=== PATIENT | female | born 1995 | race Caucasian/White ===

== ENCOUNTER 2024-03-06 05:22 | Outpatient (CLI) | payer MEDICAID, SELFPAY ==
[2024-03-06 14:56] LABS: HCT 44.6 % (36.0-46.0); HGB 15.1 g/dL (11.2-15.7); MCH 30.9 pg (27.0-33.0); MCHC 33.9 % (32.0-36.0); MCV 91 fL (80-95); MPV 9.3 fL (8.0-11.0); Platelet Count 328 10^3/uL (130-400); RBC 4.88 10^6/uL (3.93-5.22); RDW 14.1 % (11.7-14.6); RDW-SD 47.7 fL; WBC 10.14 10^3/uL (4.4-10.8)
[2024-03-06 15:09] LABS: Hemoglobin A1C 5.6 % (<5.7)
[2024-03-06 16:28] LABS: ALT 34 U/L (14-59); AST 14 U/L (15-37); Albumin 3.6 g/dL (3.4-5.0); Alkaline Phosphatase 63 U/L (46-116); BUN 10 mg/dL (7-18); Bilirubin, Total 0.3 mg/dL (0.2-1.0); CREATININE 0.8 mg/dL (0.55-1.02); Calcium 8.8 mg/dL (8.5-10.1); Chloride 107 mmol/L (98-107); Estimated GFR 104.15 (mL/min/1.73m2); Glucose 106 mg/dL (74-106); Potassium 3.9 mmol/L (3.5-5.1); Sodium 140 mmol/L (136-145); TSH (W/Ref FT4) 1.81 uIU/mL (0.36-3.74); Total Protein 7.1 g/dL (6.4-8.2)
== END 2024-03-06 05:23 | disposition home or self-care (01) ==
LOC: LBO 05:22
PROVIDERS: PCP Nurse Practitioner Family; Visit Provider Nurse Practitioner Family
DX: K21.9 Gastro-esophageal reflux disease without esophagitis; R51.9 Headache, unspecified; G89.29 Other chronic pain; F51.04 Psychophysiologic insomnia
CPT/HCPCS: 36415; 80053; 85027; 83036; 84443

== ENCOUNTER 2024-05-25 01:50 | Outpatient (CLI) | payer MEDICAID, SELFPAY ==
--- OUTSIDE RECORDS SUMMARY | 2024-05-25 01:56 | XMS_ITS | Encounter Summary ---
Author Organization [facility] [place] [address] Care Team Providers Care Warehouse Order Selector Name Role Phone Irma, Juliannerenato Gregory APRN Primary Care Provider [phone] Reason for Visit * Reason Comments Follow-up Encounter Details Date Type Department Care Team (Late st Contact Info) Description 04/03/2024 3:15 PM EDT Office Visit Dermatology at [address] [address] Gema Castro MD [facility] [address] [place] [address] Hidradenitis suppurativa Social History Tobacco Use Types Packs/Day Years Used Date Smoking Tobacco: Never Sex and Gender Information Value Date Recorded Sex Assigned at Not on file Gender Identity Not on file Sexual Orientation Not on file documented as of this encounter Progress Notes * Gema Castro MD - 04/03/2024 3:15 PM EDT Images from the original note were not included. DEPARTMENT OF DERMATOLOGY Medical Dermatology Clinic Provider: Gema Castro MD Patient's preferred name Maryam Preferred contact method for results []Phone [x]myD-H []Letter Detailed phone message OK? Yes Are there any other people with whom we may discuss your care? Kenzie (mother) Past Medical History Date, location, treatment Melanoma No Dysplastic nevi No SCC No BCC No AKs No UV Exposure & Protection Other relevant past medical history Family History Details Melanoma No NMSC No Other relevant family history Social History Occupation: Unemployed/disabled Pre-Procedure Questions Details Allergy to lidocaine, epinephrine, Dermabond, chlorhexidine, or adhesives No Bleeding disorder or blood thinners No Implanted devices (Pacemaker, defibrillator, deep brain stimulator, cochlear implant) No History of Present Illness: Maryam Green is a 28 y.o. Patient returns to clinic today forhidradenitis suppurativa follow up She feels she is doing well and no real active lesions today Last visit at Dermatology: 11/14/2023 Last visit with this provider: 11/14/2023 Medications: Reviewed in eD-H Allergies: Reviewed in eD-H Skin Examination: Focused skin examination of the arms and legs was normal with the exception of the findings below. Assessment/Plan #. Hidradenitis Suppurativa (Acne Inversa), Thibodeaux stage 1, vs Folliculitis - just a few follicularly based papules and macules of post inflammatory hyperpigmentation and she reports one area under her breat (previous exam ) - Explained ddx. HS is a painful skin condition characterized by the combination of both immune dysregulation and occlusion of the folliculopilosebaceous unit. It primarily affects the intertriginousareas of the axillary, groin, perianal, and inframammary region - Previously discussed treatment with topical antibiotics, BPO wash, ILK for stubborn/inflamed cysts - Discussed possibility of ILK vs drainage of the scarred cyst in right inguinal fold if it becomesmore bothersome. - Discontinue benzoyl peroxide wash (limited access to water) - Continue OTC Hibiclens wash 1x per week, avoiding the head - Continue Rx clindamycin 1% lotion: Apply topically to affected areas twice daily as needed. - Will order Rx doxycycline 100 mg: Take 1 capsule twice daily (morning and evening) for 90 days Ifflaring (s/p one course of this). Discussed could consider a low dose doxycyline if needed for longer duration Counseled patient to take with bland food (crackers, bread - noted interaction with calcium, iron, vitamin C) with a full glass of water, and to avoid laying down for 30 minutes. - Discussed side effects (GI upset, esophagitis, photosensitivity, possibility of vaginal yeast infection) and contraindication. Other: N/A RTC: 6 months for HS follow up []Note routed to board of education secretary []Recall placed in scheduling system [x]Appointment scheduled at checkout Scribe attestation: Yudi Maxwell LPN has performed the documentation for this encounter in the presence of and acting as a scribe for Gema Castro MD. I performed the above scribed service and agree with the accuracy of the documentation in this encounter. Reviewed and signed by: Gema Castro MD Dermatology [facility] documented in this encounter Plan of Treatment Upcoming Encounters Date Type Department Care Team (Late st Contact Info) Description 12/12/2024 3:45 PM EDT Office Visit Dermatology at [facility] [address] [place] [address] Gema Castro MD [facility] [address] [place] [address] documented as of this encounter Visit Diagnoses Diagnosis Hidradenitis suppurativa Hidradenitis documented in this encounter Care Teams Warehouse Order Selector Relationship Specialty Start Date End Date Irma, Julianne Gregory APRN [address] [place] [address] PCP - General Internal Medicine 11/14/23 documented as of this encounter
--- OUTSIDE RECORDS SUMMARY | 2024-05-25 01:56 | XMS_ITS | Encounter Summary ---
[place] [address] Care Team Providers Care Pulmonologist/Intensivist Name Role Phone Julianne Solis APRN Primary Care Provider [phone] Reason for Referral * Consultation (Routine) - Closed Specialty Diagnoses / Procedures Referred By Juan Manuel klein Referred To Contact Gastroenterology Diagnoses Dysphagia, unspecified type Gastroesophageal reflux disease without esophagitis Constipation, unspecified constipation type Diarrhea, unspecified type dysphagia/gerd/constipati on/diarrhea Julianne Solis APRN [address] [place] [address] [facility] [place] [address] Referral ID Status Reason Start Date Expiration Date V isits Requested Visits Authorized [id number] Closed Consult, Test & Treat PCP Updated and/or Approved 05/03/2024 05/03/2025 6 6 Encounter Details Date Type Department Care Team (Late st Contact Info) Description 05/07/2024 Transcribe Orders eDH Incoming Referrals [phone] Julianne Solis APRN [address] [place], [place] [id number] Dysphagia, unspecified type; Gastroesophageal reflux disease without esophagitis; Constipation, unspecified constipation type; Diarrhea, unspecified type Social History Tobacco Use Types Packs/Day Years Used Date Smoking Tobacco: Never Sex and Gender Information Value Date Recorded Sex Assigned at Not on file Gender Identity Not on file Sexual Orientation Not on file documented as of this encounter Plan of Treatment Upcoming Encounters Date Type Department Care Team (Late st Contact Info) Description 12/12/2024 3:45 PM EDT Office Visit Dermatology at [facility] [address] [place] [address] Gema Castro MD [facility] [address] [address] Scheduled Referrals Name Type Priority Associated Diagnoses Order Schedule Referral to Gastroenterology Outpatient Referral Routine Dysphagia, unspecified type Gastroesophageal reflux disease without esophagitis Constipation, unspecified constipation type Diarrhea, unspecified type Ordered: 05/07/2024 documented as of this encounter Visit Diagnoses Diagnosis Dysphagia, unspecified type Gastroesophageal reflux disease without esophagitis Esophageal reflux Constipation, unspecified constipation type Diarrhea, unspecified type documented in this encounter Care Teams Pulmonologist/Intensivist Relationship Specialty Start Date End Date Irma, Julianne Gregory APRN [address] [place] [address] PCP - General Internal Medicine 11/14/23 documented as of this encounter
--- OUTSIDE RECORDS SUMMARY | 2024-05-25 01:56 | XMS_ITS | Encounter Summary ---
Author Organization [facility] Address [facility] [place] [address] Care Team Providers Care Bench Technician Name Role Phone Rigo Fernandez MD Primary Care Provider [phone] Reason for Referral * Consultation (Priority 3) - Closed Specialty Diagnoses / Procedures Referred By Juan Manuel klein Referred To Contact Dermatology Diagnoses Hidradenitis suppurativa Radha Garzon CNM [address] [place] [id number] Darling Jordan MD [facility] [address] [place] [address] Referral ID Status Reason Start Date Expiration Date V isits Requested Visits Authorized [id number] Closed Consult, Test & Treat PCP Updated and/or Approved 05/11/2023 05/10/2024 6 6 Encounter Details Date Type Department Care Team (Latest Contact Info) Description 05/11/2023 Transcribe Orders eDH Incoming Referrals [phone] Radha Garzon CNM Hidradenitis suppurativa Social History Tobacco Use Types [...] 3:45 PM EDT Office Visit Dermatology at [facility] [address] [place] [address] Gema Castro MD [facility] [address] [place] [address] Scheduled Referrals Name Type Priority Associated Diagnoses Orde r Schedule Referral to Dermatology Outpatient Referral Routine Hidradenitis suppurativa Ordered: 05/11/2023 documented as of this encounter Visit Diagnoses Diagnosis Hidradenitis suppurativa Hidradenitis documented in this encounter Care Teams Bench Technician Relationship Specialty Start Date End Date Rigo Fernandez MD [address] [place] [address] [place] [address] PCP - General 01/15/19 11/13/23 documented as of this encounter
--- OUTSIDE RECORDS SUMMARY | 2024-05-25 01:56 | XMS_ITS | Encounter Summary ---
[place] [address] Care Team Providers Care Hedis Review Nurse Name Role Phone Perry Hebert MD Primary Care Provider [phone] Reason for Referral * Consultation (Routine) - Specialty Diagnoses / Procedures Referred By Juan Manuel klein Referred To Contact Sleep Center Diagnoses Primary insomnia Ed Wolfe MD [facility] [place] [address] [facility] [address] [place] [address] Referral ID Status Reason Start Date Expiration Date V isits Requested Visits Authorized [id number] Consult Only 06/09/2015 06/08/2016 3 3 Reason for Visit * Reason Comments Referral Encounter Details Date Type Department Care Team (Late st Contact Info) Description 06/09/2015 2:15 PM EDT Office [place] [address] Ed Wolfe MD [facility] [place] [address] Chronic arthralgias of knees and hips, unspecified laterality; Gastroesophageal reflux disease, esophagitis presence not specified; Primary insomnia Discharge Disposition: Home Social History Tobacco Use Types Packs/Day Years Used Date Smoking Tobacco: Never Sex and Gender Information Value Date Recorded Sex Assigned at Not on file Gender Identity Not on file Sexual Orientation Not on file documented as of this encounter Last Filed Vital Signs Vital Sign Reading Time Taken Comments Blood Pressure 131/64 06/09/2015 2:18 PM EDT Pulse 87 06/09/2015 2:18 PM EDT Temperature 36.5 ??C (97.7 ??F) 06/09/2015 2:18 PM ED T Respiratory Rate - - Oxygen Saturation 100% 06/09/2015 2:18 PM EDT Inhaled Oxygen Concentration - - Weight 76.2 kg (168 lb) 06/09/2015 2:18 PM EDT Height 160 cm (5' 3) 06/09/2015 2:18 PM EDT Body Mass Index 29.76 06/09/2015 2:18 PM EDT Body Mass Index Percentile 94.64% 06/09/2015 2:1 8 PM EDT Growth Chart: [facility] (Girls, 2- 20 Years) documented in this encounter Progress Notes * Corby Mejia MD - 06/10/2015 12:28 PM EDT I have seen the patient and reviewed the resident's above history and I agree with the details as written. The assessment and plan were formulated in discussion with me and I agree with them as documented. Pertinent History: Diffuse body pain Pertinent Exam: Hypermobile no synovitis no tender points Major issues addressed: Is this fibro Plan: Check serology needs sleep study trial of amitryptiline * Ed Wolfe MD - 06/09/2015 2:45 PM EDT Rheumatology Outpatient Consultation Note Reason for Consult: The patient is seen at the request of Dr. PERRY HEBERT MD (General) for evaluation and treatment of History of Present Illness: Maryam Green is a 19 y.o. female who presents today for evaluation of diffuse body pains that have bothered her for years. She describes pain which is worst in the shoulders, wrists and ankles, but also affects every otherjoint. She does not have diurnal variation, no aggravating or alleviating factors. She has tried tylenol, naproxen and ibuprofen with minimal relief. She has no swelling in any of her joints and no morning stiffness. She also complains of severe reflux, associated with burning pain, metallic taste which is worse with lying down, not helped by ranitidine. She does have a lot of trouble getting to sleep and staying asleep is hard most nights. On average she gets between 10-14 hrs sleep a night, which is always unrefreshing. No depression currently. Shehas been told that she snores, and when she wakes up her sheets are clumped up. She has fatigue from the time she wakes up to the time she sleeps. She is not exercising regularly, and when she was in school her only regular exercise was walking to class. She does think she is fairly flexible and her brother is also quite hypermobile. ROS: General (-)fevers, (-)chills, (-)night sweats, (-)wt loss/gain. HEENT (-)head trauma, (-)vision change, (-)red/itchy eyes, (-)tinnitus, (- )epistaxis, (-)bleeding gums, (-)sore throat, (-)oral ulcers, (+)dry eyes-but not requiring any intervention, worse with looking at screen, (+)dry mouth- does not require liquids when eating, but does drink a lot of water CVS (-)chest pain, (-)palpitations, (-)pedal edema, (-)PND, (-)orthopnea. Pulm (-)shortness of breath, (-)PEPE, (-)wheezes, (-)cough, (+)pleuritic pain GI (+)abdominal pain, (+)N/V, (+)diarrhea/constipation, (-)hematochezia/melena, (-)GERD, (-)dysphagia, (-)change in appetite (-)hematuria, (-)dysuria, (-)frequency, (-)nocturia, (-)genital ulcers MS (-)muscle weakness, (-)joint pain, (-)hx of arthritis Endo (-)thyroid disorders, (-)diabetes, (-)temperature intolerance. Neuro (-)focal weakness, (-)paresthesias, (-)gait instability, (-)vertigo Skin (-)Raynaud's, (-)rash, (-)ulcers, (-)hair loss, (-)photo sensitivity Psych (-)mood disorder. History Social History ??? Marital Status: Single Spouse Name: N/A Number of Children: N/A ??? Years of Education: N/A Social History Main Topics ??? Smoking status: Never Smoker ??? Smokeless tobacco: None ??? Alcohol Use: None ??? Drug Use: None ??? Sexual Activity: None Other Topics Concern ??? None Social History Narrative ??? None Current Outpatient Prescriptions Medication Sig Dispense Refill ??? ranitidine (ZANTAC) 150 mg Tablet Take 150 mg by mouth as needed for Heartburn. ??? naproxen-diphenhydramine (ALEVE PM) 220-25 mg Tablet Take by mouth as needed. ??? omeprazole (PRILOSEC) 40 mg Capsule, Delayed Release(E.C.) Take 1 capsule by mouth daily. 30 capsule 11 No current facility-administered medications for this visit. 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 Cardiovascular: RRR, (-)murmurs, rubs, or gallops. Lungs: Clear to auscultation bilaterally. No w/r/r. Back: Nontender over the spine and costovertebral angles bilaterally. No tender points, felt betterduring palpation of tender areas Neuro: Alert and oriented x3. Extremities: Shoulders: FROM, non-tender to palpation Elbows:FROM, (-)pain, (-)nodules Wrists: FROM, no swelling, non-tender Hands: No synovitis, no MCP compression tenderness, full claw and fist Hips: FROM Knees: (-)effusions, non-tender ROM Ankles: FROM, non-tender, no swelling Feet: no MTP compression tenderness Vascular: Pulses are equal in all extremities. Beighton's Criteria for Joint Hypermobility Joint/Finding Negative Unilateral Bilateral Passive dorsiflexion of the 5th finger >90?? 0 Passive flexion of thumbs to the forearm 0 Hyperextension of the elbows beyond 10?? 2 Hyperextension of the knees beyond 10?? 2 Forward flexion of the trunk with knees fully extended and palms resting on the floor 0 A total score of >=5 defines hypermobility; her score is 4 Laboratory Data: GI, RF, CCP negative Sed rate 11, CRP 0.19 CBC, BMP within normal limits Studies: None available Impression: Maryam Green is a 19 y.o. female who presents today with diffuse pain which is ill defined, but certainly does not seem inflammatory. She does seem to have some element of hypermobility, and is likely hypersensitized to pain because of her sleep deficit. Her symptoms of insomnia, certainly raise the possibility of CHEMO or restless leg and a sleep study may be helpful. Amitriptyline may also be useful for a trial to see if it improves her sleep and her pain. For her reflux symptoms it certainly seems reasonable to try a PPI especially as it may be playing a part in her difficulties sleeping. If no benefit is seen at follow up, then she should probably be referred to GI for additional work up. Given her non specific symptoms and history of low titer positive GI we will repeat her serology and send for PRACHI as she does have some sicca complaints. CC: PERRY HEBERT MD (General) Case seen and discussed with Dr Roberto WOLFE MD 06/10/2015 documented in this encounter Plan of Treatment Upcoming Encounters Date Type Department Care Team (Late st Contact Info) Description 12/12/2024 3:45 PM EDT Office Visit Dermatology at [facility] [address] [place] [address] Gema Castro MD [facility] [address] [facility] [address] Scheduled Referrals Name Type Priority Associated Diagnoses Orde r Schedule Referral to Sleep Disorders Center Outpatient Referral Routine Primary insomnia Ordered: 06/09/2015 documented as of this encounter Procedures Procedure Name Priority Date/Time Associated Diagnosis Comments MISCELLANEOUS LAB REQUEST Routine 06/09/2015 4:23 PM EDT Chronic arthralgias of knees and hips, unspecified laterality RNA POLYMERASE III AB,IGG Routine 06/09/2015 4:23 PM EDT EXTRACTABLE NUCLEAR ANTIGEN (PRACHI) AB Routine 06/09/2015 4:23 PM EDT Chronic arthralgias of knees and hips, unspecified laterality GI ANTIBODY SCREEN Routine 06/09/2015 4 :23 PM EDT Chronic arthralgias of knees and hips, unspecified laterality documented in this encounter Results * RNA Polymerase III Ab,IgG (06/09/2015 4:23 PM EDT) Pathologist [facility] RNA Polymerase III Ab, IgG (JANUARY) <10.0 <20.0 (Negative) [facility] Comment: Test Performed by: [place] [address] Bisque Tile Burner: Alec Muñoz II, M.D., Ph.D. Blood specimen (specimen) Venous Draw / Unknown 06/09/2015 4:23 PM EDT 06/10/2015 8:30 AM EDT Narrative Resulting Agency Comment Spec In Lab Ed Wolfe MD LAB SEND OUT ORDERAB LES [facility] * Miscellaneous Lab request (06/09/2015 4:23 PM EDT) Label Request received in lab. [facility] Blood specimen (specimen) 06/09/2015 4:23 PM EDT 06/09/2015 4:33 PM EDT Narrative Resulting Agency Comment Spec In Lab Corby Mejia MD LAB SEND OUT ORDERAB LES [facility] * Extractable Nuclear Antigen (PRACHI) Ab (06/09/2015 4:23 PM EDT) PRACHI Ab Test ?Result ?Flag ??Unit ??RefValue Ab to Extractable Nuclear Ag Eval,S ??SS-A/Ro Ab, IgG, S ?<0.2 ?U -- REFERENCE VALUE -- <1.0 (Negative) ??SS-B/La Ab, IgG, S ?<0.2 ?U -- REFERENCE VALUE -- <1.0 (Negative) ??Sm Ab, IgG, S ? <0.2 ?U -- REFERENCE VALUE -- <1.0 (Negative) ??PET CARE TECHNICIAN Ab, IgG, S ?0.5 ? U -- REFERENCE VALUE -- <1.0 (Negative) ??Scl 70 Ab, IgG, S ? <0.2 ?U -- REFERENCE VALUE -- <1.0 (Negative) ??Bianka 1 Ab, IgG, S ? <0.2 ?U -- REFERENCE VALUE -- <1.0 (Negative) Test Performed by: [place] [address] Bisque Tile Burner: Agustina Clay, Ph.D. [facility] Blood specimen (specimen) 06/09/2015 4:23 PM EDT 06/10/2015 8:27 AM EDT Narrative Resulting Agency Comment Spec In Lab Corby Mejia MD LAB SEND OUT ORDERAB LES [facility] * GI (06/09/2015 4:23 PM EDT) GI Neg Neg [facility] REDMONDI[facility] Blood specimen (specimen) 06/09/2015 4:23 PM EDT 06/10/2015 8:12 AM EDT Narrative Resulting Agency Comment Spec In Lab Corby Mejia MD LAB SEND OUT ORDERAB LES [facility] documented in this encounter Visit Diagnoses Diagnosis Chronic arthralgias of knees and hips, unspecified laterality Gastroesophageal reflux disease, esophagitis presence not specified Primary insomnia Persistent disorder of initiating or maintaining sleep documented in this encounter Care Teams Hedis Review Nurse Relationship Specialty Start Date End Date Perry Hebert MD PCP - General 08/18/10 01/14/19 documented as of this encounter
--- OUTSIDE RECORDS SUMMARY | 2024-05-25 01:56 | XMS_ITS | Encounter Summary ---
[place] [address] Care Team Providers Care Manager Qa Name Role Phone Julianne Solis APRN Primary Care Provider [phone] Encounter Details Date Type Department Care Team (Latest Contact Info) Description 11/14/2023 Travel Social History Tobacco Use Types Packs/Day Years Used Date Smoking Tobacco: Never Sex and Gender Information Value Date Recorded Sex Assigned at Not on file Gender Identity Not on file Sexual Orientation Not on file documented as of this encounter Plan of Treatment Upcoming Encounters Date Type Department Care Team (Late st Contact Info) Description 12/12/2024 3:45 PM EDT Office Visit Dermatology at [facility] [address] [place] [address] Gema Castro MD [facility] [address] [place] [address] documented as of this encounter Visit Diagnoses Not on filedocumented in this encounter Care Teams Manager Qa Relationship Specialty Start Date End Date Julianne Solis APRN [address] [place] [address] PCP - General Internal Medicine 11/14/23 documented as of this encounter
--- OUTSIDE RECORDS SUMMARY | 2024-05-25 01:56 | XMS_ITS | Encounter Summary ---
[place] [address] Care Team Providers Care Piggyback Clerk Name Role Phone Julianne Solis APRN Primary Care Provider [phone]- [phone] Encounter Details Date Type Department Care Team (Latest Contact Info) Description 04/03/2024 Travel Social History Tobacco Use Types Packs/Day [...] 3:45 PM EDT Office Visit Dermatology at [facility] [address] [place] [address] Gema Castro MD [facility] [address] [place] [address] documented as of this encounter Visit Diagnoses Not on filedocumented in this encounter Care Teams Piggyback Clerk Relationship Specialty Start Date End Date Julianne Solis APRN [address] [place] [address] PCP - General Internal Medicine 11/14/23 documented as of this encounter
--- OUTSIDE RECORDS SUMMARY | 2024-05-25 01:56 | XMS_ITS | Encounter Summary ---
Author Organization [facility] [place] [address] Care Team Providers Care Dedicated Intermodal Truck Driver Name Role Phone Rigo Fernandez MD Primary Care Provider [phone] Encounter Details Date Type Department Care Team (Latest Contact Info) Description 09/06/2023 Travel Social History Tobacco Use Types Packs/Day [...] 3:45 PM EDT Office Visit Dermatology at [address] [address] Gema Castro MD [facility] [address] [place] [address] documented as of this encounter Visit Diagnoses Not on filedocumented in this encounter Care Teams Dedicated Intermodal Truck Driver Relationship Specialty Start Date End Date Rigo Fernandez MD [address] [place] [address] PCP - General 01/15/19 11/13/23 documented as of this encounter
--- OUTSIDE RECORDS SUMMARY | 2024-05-25 01:56 | XMS_ITS | Encounter Summary ---
Author Organization [facility] [place] [address] Care Team Providers Care Vehicle Sales Professional Name Role Phone Irma, Julianne Gregory APRN Primary Care Provider [phone] Encounter Details Date Type Department Care Team (Late st Contact Info) Description 11/14/2023 2:20 PM EST Office Visit Dermatology at [address] [address] Gema Castro MD [facility] [place] [address] Hidradenitis suppurativa Social History Tobacco Use Types Packs/Day Years Used Date Smoking Tobacco: Never Sex and Gender Information Value Date Recorded Sex Assigned at Not on file Gender Identity Not on file Sexual Orientation Not on file documented as of this encounter Progress Notes * Gema Castro MD - 11/14/2023 2:20 PM EST Images from the original note were not [...] 28 y.o. Patient returns to clinic today forHS follow up Patient states she has limited access to hot water/showering so she has not been able to use benzoyl peroxide wash or clindamycin very often. Benxoyl peroxide and clindamycin makes spots sometimes more tender/sensitive. Last visit at Dermatology: 09/06/2023 Last visit with this provider: Never Medications: Reviewed in eD-H Allergies: Reviewed in eD-H Skin Examination: Focused skin examination of the intermammary folds, groin was normal with the exception of the findings below. Assessment/Plan #. Hidradenitis Suppurativa (Acne Inversa), Thibodeaux stage 1, vs Folliculitis - scattered follicularly based papules and macules of post inflammatory hypopigmentation on the central chest and inframammary skin an proximal medial thighs and one probable scarred cyst on the right inguinal fold. No comedones, sinus tracks, or draining cysts/nodules - Explained ddx. HS is a painful skin condition characterized by the combination of both immune dysregulation and occlusion of the folliculopilosebaceous unit. It primarily affects the intertriginousareas of the axillary, groin, perianal, and inframammary region - Discussed treatment with topical antibiotics, BPO wash, ILK for stubborn/inflamed cysts - Discussed possibility of ILK vs drainage of the scarred cyst in right inguinal fold if it becomesmore bothersome. - Discontinue benzoyl peroxide wash (limited access to water) - Begin OTC Hibiclens wash 1x per week, avoiding the head - Start Rx clindamycin 1% lotion: Apply topically to affected areas twice daily as needed. - Begin Rx doxycycline 100 mg: Take 1 capsule twice daily (morning and evening) for 90 days. Counseled patient to take with bland food (crackers, bread - noted interaction with calcium, iron, vitaminC) with a full glass of water, and to avoid laying down for 30 minutes. - Discussed side effects (GI upset, esophagitis, photosensitivity, possibility of vaginal yeast infection) and contraindication. Other: OTC skin products discussed RTC: 3-4 month HS follow up []Note routed to clinical secretary []Recall placed in scheduling system []Appointment scheduled at checkout Scribe attestation: Shaw Gonzalez, RN has performed the documentation for this encounter in the presence of and acting as a scribe for Gema Castro MD. I performed the above scribed service and agree with the accuracy of the documentation in this encounter. Reviewed and signed by: Gema Castro MD Dermatology [facility] documented in this encounter Plan of Treatment Upcoming Encounters Date Type Department Care Team (Late st Contact Info) Description 12/12/2024 3:45 PM EDT Office Visit Dermatology at [facility] [address] [place] [address] Gema Castro MD [facility] [address] [place] [address] documented as of this encounter Visit Diagnoses Diagnosis Hidradenitis suppurativa Hidradenitis documented in this encounter Care Teams Vehicle Sales Professional Relationship Specialty Start Date End Date Irma, Julianne Gregory APRN [address] [facility] [address] [place] [address] PCP - General Internal Medicine 11/14/23 documented as of this encounter
--- OUTSIDE RECORDS SUMMARY | 2024-05-25 01:56 | XMS_ITS | Encounter Summary ---
Author Organization [facility] [place] [address] Care Team Providers Care Kitchen Steward Name Role Phone Rigo Fernandez MD Primary Care Provider [phone] Reason for Visit * Consultation (Priority 3) - Closed Specialty Diagnoses / Procedures Referred By Juan Manuel klein Referred To Contact Dermatology Diagnoses Hidradenitis suppurativa Radha Garzon, CNM [address] [place] [address] Darling Jordan MD [facility] [address] [place] [address] Referral ID Status Reason Start Date Expiration Date V isits Requested Visits Authorized [id number] Closed Consult, Test & Treat PCP Updated and/or Approved 05/11/2023 05/10/2024 6 6 Encounter Details Date Type Department Care Team (Late st Contact Info) Description 09/06/2023 2:00 PM EST Office Visit Dermatology at [facility] [address] [place] [address] Katie Palmer MD [facility] [place] [address] Hidradenitis suppurativa Social History Tobacco Use Types Packs/Day Years Used Date Smoking Tobacco: Never Sex and Gender Information Value Date Recorded Sex Assigned at Not on file Gender Identity Not on file Sexual Orientation Not on file documented as of this encounter Progress Notes * Katie Palmer MD - 09/06/2023 2:00 PM EST Images from the original note were not included. DEPARTMENT OF DERMATOLOGY Medical Dermatology Clinic Note Provider: Katie Palmer MD Patient's preferred name Maryam Preferred contact [...] of Present Illness: Maryam Green is a 27 y.o. Patient is referred to the clinic at the request of Radha Garzon for Hidradenitis Suppurativa under the breast and in the groin. Currently is not treating. Review of Systems: General: Feeling well. Skin: No other skin concerns. Medications: Reviewed in eD-H Allergies: Reviewed in eD-H Skin Examination: Focused skin examination of the axilla, inframammary, thighs and groin was normal with the exception of the findings below. Assessment/Plan Hidradenitis Suppurativa (Acne Inversa), Thibodeaux stage 1, vs Folliculitis - scattered follicularly based papules and macules of post inflammatory hypopigmentation on the central chest and inframammaryskin an proximal medial thighs and one probable [...] inguinal fold if it becomesmore bothersome. - Recommended using a benzoyl peroxide wash (such as PanOxyl wash) in the shower. - Start Rx: Benzoyl Peroxide wash- Apply topically to affected areas in the shower. Lather and leave on for 2-3 minutes, then rinse. - Start Rx clindamycin 1% solution: Apply topically to affected areas twice daily as needed. Other: N/A RTC: 3 months for HS/Folliculitis follow up, sooner as needed []Note routed to ward secretary []Recall placed in scheduling system [x]Appointment scheduled at checkout Scribe attestation: Ayanna Dubois, GEE has performed the documentation for this encounter in the presence of and acting as a scribe for Katie Palmer MD. I performed the above scribed service and agree with the accuracy of the documentation in this encounter. Reviewed and signed by: Katie Palmer MD Dermatology [facility] documented in this encounter Plan of Treatment Upcoming Encounters Date Type Department Care Team (Late st Contact Info) Description 12/12/2024 3:45 PM EDT Office Visit Dermatology at [facility] [address] [place] [address] Gema Castro MD [facility] [address] [place] [address] documented as of this encounter Visit Diagnoses Diagnosis Hidradenitis suppurativa Hidradenitis documented in this encounter Care Teams Kitchen Steward Relationship Specialty Start Date End Date Rigo Fernandez MD [address] [facility] [place] [address] PCP - General 01/15/19 11/13/23 documented as of this encounter
--- OUTSIDE RECORDS SUMMARY | 2024-05-25 01:56 | XMS_ITS | Encounter Summary ---
Author Organization [facility] [place] [address] Care Team Providers Care Sales Account Director Name Role Phone Perry Hebert MD Primary Care Provider [phone] Reason for Referral * Physical Therapy (Routine) - Closed Specialty Diagnoses / Procedures Referred By Juan Manuel klein Referred To Contact Physical Therapy Diagnoses Benign hypermobility syndrome Ed Wolfe MD [facility] [place] [address] [facility] [place] [address] Referral ID Status Reason Start Date Expiration Date V isits Requested Visits Authorized [id number] Closed Evaluate and Treat 10/20/2015 10/19/2016 12 12 Encounter Details Date Type Department Care Team (Late st Contact Info) Description 10/20/2015 9:30 AM EST Office [place] [address] Ed Wolfe MD [facility] [place] [address] Benign hypermobility syndrome Social History Tobacco Use Types Packs/Day Years Used Date Smoking Tobacco: Never Sex and Gender Information Value Date Recorded Sex Assigned at Not on file Gender Identity Not on file Sexual Orientation Not on file documented as of this encounter Last Filed Vital Signs Vital Sign Reading Time Taken Comments Blood Pressure 124/61 10/20/2015 9:46 AM EST Pulse 66 10/20/2015 9:46 AM EST Temperature 36.6 ??C (97.9 ??F) 10/20/2015 9:46 AM ES T Respiratory Rate - - Oxygen Saturation 100% 10/20/2015 9:46 AM EST Inhaled Oxygen Concentration - - Weight 85.7 kg (189 lb) 10/20/2015 9:46 AM EST Height 161.3 cm (5' 3.5) 10/20/2015 9:46 AM EST Body Mass Index 32.95 10/20/2015 9:46 AM EST Body Mass Index Percentile 96.42% 10/20/2015 9:4 6 AM EST Growth Chart: [facility] (Girls, 2- 20 Years) documented in this encounter Progress Notes * Perry Barrera II, DO - 10/21/2015 3:34 PM EST I have seen the patient and reviewed Dr. Wolfe's above history and I agree with the details as written. The assessment and plan were formulated in discussion with me and I agree with them as documented. Briefly, Ms. Green is an 20 y/o F with fibromyalgia and hypermobility without evidence of a Rheumatologic disease. She will plan to f/u with Dr. Wolfe PRN. Perry Barrera DO, MPH Rheumatology Staff * Ed Wolfe MD - 10/20/2015 9:51 AM EST Rheumatology Outpatient Consultation Note Rheum history #benign hypermobility syndrome #fibromyalgia Interval: Maryam Green is a 20 y.o. Female who is here for routine follow up of benign hypermobiltiy and fibromyalgia. At last visit we confirmed negative serologies checked because of some history of questionable sicca symptoms, and started interventions to improve functional pain. She did not find elavil helpful as it just caused her to sleep more. She has focused on relaxation techniques before sleep which have helped. She is still sleeping 10-14 hours. Wakes up with siblings, has no plans for her morning, feels tired so sleeps a further 4-5 hours. 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 She has not tried physical therapy but is interested in it. Omeprazole helped with reflux symptoms, which kept her up previously. Labs reviewed including negative GI, PRACHI and RF. She has had prior issues with depression in the past, but is doing well now. Has a good support system in place. ROS: General (-)fevers, (-)chills, (-)night sweats, (-)wt [...] Topics Concern ??? None Social History Narrative Current Outpatient Prescriptions Medication Sig Dispense Refill ??? naproxen-diphenhydramine (ALEVE PM) 220-25 mg Tablet [...] PRN alleve, ibuprofen, tylenol Physical Examination: BP 124/61 mmHg Pulse 66 Temp(Src) 36.6 ??C (97.9 ??F) (Oral) Ht 161.3 cm (5' 3.5) Wt 85.73kg (189 lb) BMI 32.95 kg/m2 SpO2 100% General: AAOx3, NAD HEENT: [...] score is 4 Laboratory Data: GI, RF, CCP, PRACHI negative Sed rate 11, CRP 0.19 CBC, BMP within normal limits Studies: None available Impression: Maryam Green is a 20 y.o. female who presents today in follow up for FMS and benign hypermobility. Her sleep remains suboptimal, but she is making strides to sleep more appropriate hours, we reviewed the elements of sleep hygiene and discontinued elavil. For her pain from FMS and hypermobility she may try switching from naproxen to a different NSAID, we offered meloxicam, which she would like to try. She would also like to attend physical therapy, and she will continue to try to get regular exercise while protecting her joints. For her reflux symptoms they are improved with omeprazole which she may continue as this has also improved her sleep. She may return to clinic as needed, especially if new symptoms develop, otherwise, it seems more convenient for her to return to her primary care provider for continued management. CC: PERRY HEBERT MD Case seen and discussed with Dr Bruce WOLFE MD 10/20/2015 documented in this encounter Plan of Treatment Upcoming Encounters Date Type Department Care Team (Late st Contact Info) Description 12/12/2024 3:45 PM EDT Office Visit Dermatology at [facility] [address] [place] [address] Gema Castro MD [facility] [address] [place] [address] Scheduled Referrals Name Type Priority Associated Diagnoses Orde r Schedule Referral to Physical Therapy Outpatient Referral Routine Benign hypermobility syndrome Ordered: 10/20/2015 documented as of this encounter Visit Diagnoses Diagnosis 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
--- OUTSIDE RECORDS SUMMARY | 2024-05-25 01:56 | XMS_ITS | Clinical Summary ---
Author Organization [facility] Address [facility] [place] [address] Care Team Providers Care Green Chain Operator Name Role Phone Irma, Julianne Gregory APRN Primary Care Provider [phone] Allergies No known active allergies Medications Medication Sig Dispensed Refills Start Date End Date Status naproxen-diphenhyd ramine (ALEVE PM) 220-25 mg Tablet Take by mouth as needed. Active meloxicam (MOBIC) 15 mg Tablet Take 0.5 tablets by mouth daily. 30 tablet 12 10/20/2015 Active Additional Information Patient not taking.Reported on 09/06/2023 omeprazole (PriLOSEC) [address] capsule TAKE ONE CAPSULE BY MOUTH EVERY DAY NEEDED FOR GERD 05/11/2023 Active citalopram (CeleXA) 20 mg tablet Take 1 tablet by mouth Daily at Noon. 04/13/2023 Active citalopram (CeleXA) 10 mg tablet 05/13/2023 Active benzoyl peroxide 5 % CleanserIndication s:Hidradenitis suppurativa Apply topically to affected areas in the shower. Lather and leave on for 2-3 minutes, then rinse 226 g 12 09/06/2023 Active doxycycline (Vibramycin) 100 mg capsuleIndications :Hidradenitis suppurativa Take 1 capsule by mouth 2 times daily. 180 capsule 11/14/2023 Active clindamycin (CLEOCIN T) 1 % LotionIndications: Hidradenitis suppurativa Apply topically to affected area 1-2 times daily 60 mL 3 11/14/2023 Active Active Problems No known active problems Encounters Date Type Department Care Team Description 05/07/2024 Transcribe Orders eDH Incoming Referrals [phone] Julianne Solis APRN Dysphagia, unspecified type; Gastroesophageal reflux disease without esophagitis; Constipation, unspecified constipation type; Diarrhea, unspecified type 04/03/2024 3:15 PM EDT Office Visit Dermatology at [facility] [address] [place] [address] Gema Castro MD Hidradenitis suppurativa 04/03/2024 Travel from Last 3 Months Social History Tobacco Use Types Packs/Day Years Used Date Smoking Tobacco: Never Sex and Gender Information Value Date Recorded Sex Assigned at Not on file Gender Identity Not on file Sexual Orientation Not on file Last Filed Vital Signs Vital Sign Reading [...] Mass Index 32.95 10/20/2015 9:46 AM EST Plan of Treatment Upcoming Encounters Date Type Department Care Team (Late st Contact Info) Description 12/12/2024 3:45 PM EDT Office Visit Dermatology at [facility] [address] [place] [address] Gema Castro MD [facility] [address] [place] [address] Health Maintenance Due Date Last Done Comments HPV vaccine (1 - 3-dose series) 2012 HIV screen 2015 Hepatitis C Screening 2015 Hepatitis B vaccine (0-59 yrs) (1) 2016 Tdap adult 2016 Tetanus vaccine 2016 PAP Smear 2018 Covid-19 Vaccine ( season) 2023 Influenza (Flu) vaccine (1 o f 1 - Influenza standard series) 05/27/2024 Procedures Procedure Name Priority Date/Time Associated Diagnosis Comments LAB SCAN 03/26/2024 12:00 AM EDT LAB SCAN 03/06/2024 12:00 AM EDT from Last 3 Months Results * Scan Doc: Lab (03/26/2024 12:00 AM EDT) Only the most recent of2 resultswithin the time period is included. Narrative 03/26/2024 12:00 AM EDT Ordered by an unspecified provider. Scanning Provider MEDIA MGR SCAN EXT O RDR/RSLT from Last 3 Months Care Teams Green Chain Operator Relationship Specialty Start Date End Date Irma, Julianne Gregory APRN [address] [place] [address] PCP - General Internal Medicine 11/14/23
[2024-05-25 15:34] LABS: ESR 23 mm/hr (0-20)
[2024-05-25 16:41] LABS: C-Reactive Protein 1.01 mg/dL (<or=0.5)
[2024-05-25 22:23] LABS: Rheumatoid Factor <8.6 IU/mL (<12.0)
[2024-05-28 11:37] LABS: Lyme Ab w Rflx to Lyme Confirm Positive (Negative)
[2024-05-28 12:48] LABS: ANA Interpretation Negative (Negative)
[2024-05-28 16:00] LABS: Anaplasma phagocytophilum Negative (Negative); B. miyamotoi PCR Negative (Negative); Babesia divergens/MO-1 Negative (Negative); Babesia duncani Negative (Negative); Babesia microti Negative (Negative); Ehrlichia chaffeensis Negative (Negative); Ehrlichia ewingii/canis Negative (Negative); Ehrlichia muris eauclairensis Negative (Negative)
[2024-05-29 08:28] LABS: Lyme IgG Ab Equivocal (Negative); Lyme IgM Ab Negative (Negative)
== END 2024-05-25 01:51 | disposition home or self-care (01) ==
LOC: LBO 01:51
PROVIDERS: PCP Nurse Practitioner Family; Visit Provider Nurse Practitioner Family
DX: M79.18 Myalgia, other site; R53.83 Other fatigue
CPT/HCPCS: 36415; 85652; 86617; 87798; 86038; 86140; 86431; 86618

== ENCOUNTER 2025-01-11 08:56 | Emergency (ER) | payer MEDICAID, SELFPAY ==
[2025-01-11 09:01] VITALS: BP 147/94; PULSE 90; RESP 18; TEMP 36.9; O2SAT 97
[2025-01-11 09:05] VITALS: BP 147/94; PULSE 90; RESP 18; TEMP 36.9; O2SAT 97
[2025-01-11 09:09] VITALS: RESP 18
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
[2025-01-11] MEDS: diphenhydrAMINE 50 MG/ML VIAL 25 MG IVP (09:55)
[2025-01-11] MEDS: SUMAtriptan 25 MG TAB PO (09:55)
[2025-01-11] MEDS: ACETAMINOPHEN 1,000 MG/100 ML BAG 400 MG IVPB (09:56)
[2025-01-11] MEDS: Metoclopramide 10 MG/2 ML VIAL IVP (09:56)
[2025-01-11] MEDS: Dexamethasone 10 MG/ML VIAL IVP (09:56)
[2025-01-11] MEDS: Ketorolac 15 MG/ML VIAL IVP (09:56)
[2025-01-11 09:59] LABS: Abs Immature Grans 0.01 10^3/uL (0.0-0.06); HCT 46.6 % (36.0-46.0); HGB 15.6 g/dL (11.2-15.7); MCH 29.6 pg (27.0-33.0); MCHC 33.5 % (32.0-36.0); MCV 88 fL (80-95); MPV 10.1 fL (8.0-11.0); Platelet Count 175 10^3/uL (130-400); RBC 5.27 10^6/uL (3.93-5.22); RDW 13.1 % (11.7-14.6); RDW-SD 42.7 fL
[2025-01-11 10:14] LABS: ALT 108 U/L (14-59); AST 68 U/L (15-37); Albumin 3.8 g/dL (3.4-5.0); Alkaline Phosphatase 71 U/L (46-116); Anion Gap 11.5 mmol/L (3-11); BUN 8 mg/dL (7-18); Bilirubin, Total 0.5 mg/dL (0.2-1.0); CO2 26.5 mmol/L (21.0-32.0); Calcium 9.2 mg/dL (8.5-10.1); Chloride 101 mmol/L (98-107); Estimated GFR 79.19 (mL/min/1.73m2); Glucose 107 mg/dL (74-106); Potassium 3.9 mmol/L (3.5-5.1); Sodium 139 mmol/L (136-145); Total Protein 7.8 g/dL (6.4-8.2)
[2025-01-11 10:21] LABS: Absolute Basophil Count 0.11 10^3/uL (0.0-0.2); Absolute Eosinophil Count 0.19 10^3/uL (0.0-0.7); Absolute Lymphocyte Count 1.15 10^3/uL (1.2-3.4); Absolute Monocyte Count 0.37 10^3/uL (0.1-0.8); Absolute Neutrophil Count 1.89 10^3/uL (1.2-6.7); Atypical Lymphocytes % 2 %; Diff Comment Manual Differential
[2025-01-11 10:22] LABS: RBC Morphology Normal
[2025-01-11 10:31] VITALS: BP 106/69; PULSE 56; RESP 16; O2SAT 99
[2025-01-11 10:39] LABS: COVID-19 PCR Negative (Negative); Influenza A PCR Negative (Negative); Influenza B PCR Negative (Negative); RSV PCR Negative (Negative)
[2025-01-11 10:40] LABS: Source Nasopharynx
[2025-01-11 11:22] VITALS: BP 125/79; PULSE 66; RESP 18; O2SAT 98
[2025-01-14 13:14] LABS: Lyme Ab w Rflx to Lyme Confirm Negative (Negative)
[2025-01-14 15:43] LABS: Anaplasma phagocytophilum Negative (Negative); B. miyamotoi PCR Negative (Negative); Babesia divergens/MO-1 Negative (Negative); Babesia duncani Negative (Negative); Babesia microti Negative (Negative); Ehrlichia chaffeensis Negative (Negative); Ehrlichia ewingii/canis Negative (Negative); Ehrlichia muris eauclairensis Negative (Negative)
== END 2025-01-11 11:24 | disposition home or self-care (01) ==
PROVIDERS: Emergency Provider Physician Assistant; PCP Nurse Practitioner Family
DX: G43.909 Migraine, unspecified, not intractable, without status migrainosus (principal); F17.210 Nicotine dependence, cigarettes, uncomplicated; F17.290 Nicotine dependence, other tobacco product, uncomplicated
CPT/HCPCS: 36415; 80053; 87637; 87798; 96374; 96375; 99284; 85025; 86618; J0131; J1100; J1200; J1885; J2765

== ENCOUNTER 2025-02-22 00:59 | Outpatient (CLI) | payer MEDICAID, SELFPAY ==
[2025-02-22 12:10] LABS: ESR 13 mm/hr (0-20)
[2025-02-22 12:25] LABS: Hemoglobin A1C 5.5 % (<5.7)
[2025-02-22 12:35] LABS: BUN 8 mg/dL (7-18); C-Reactive Protein 0.53 mg/dL (<or=0.5); CREATININE 0.7 mg/dL (0.55-1.02); Chloride 107 mmol/L (98-107); Estimated GFR 121.49 (mL/min/1.73m2); Glucose 103 mg/dL (74-106); Potassium 3.8 mmol/L (3.5-5.1); Sodium 141 mmol/L (136-145); TSH (W/Ref FT4) 1.58 uIU/mL (0.36-3.74)
[2025-02-22 18:28] LABS: Rheumatoid Factor <8.6 IU/mL (<12.0)
[2025-02-23 04:13] LABS: HIV-1/2 Ag & Ab Screen Negative (Negative)
[2025-02-25 11:20] LABS: Syphilis Serology (RPR) Negative (Negative)
[2025-02-25 14:09] LABS: ANA Interpretation Negative (Negative)
== END 2025-02-22 01:00 | disposition home or self-care (01) ==
LOC: LBO 00:59
PROVIDERS: PCP Nurse Practitioner Family; Visit Provider Nurse Practitioner Family
DX: Z00.00 Encounter for general adult medical examination without abnormal findings (principal); M79.10 Myalgia, unspecified site; R53.83 Other fatigue; K21.9 Gastro-esophageal reflux disease without esophagitis; F90.9 Attention-deficit hyperactivity disorder, unspecified type; Z11.4 Encounter for screening for human immunodeficiency virus [HIV]; Z11.3 Encounter for screening for infections with a predominantly sexual mode of transmission
CPT/HCPCS: 0064U; 36415; 80048; 85652; 87389; 83036; 84443; 86038; 86140; 86431; 86592

== ENCOUNTER 2025-07-24 10:30 | Outpatient (CLI) | payer MEDICAID, SELFPAY | END 2025-07-24 10:31 | disposition home or self-care (01) | PROVIDERS: PCP Nurse Practitioner Family; Visit Provider Nurse Practitioner Family | DX: R00.2 Palpitations (principal) | CPT/HCPCS: 93246 ==

== ENCOUNTER 2025-08-16 07:01 | Outpatient (CLI) | payer MEDICAID, SELFPAY ==
--- NOTE | 2025-08-16 08:41 | W.CARDEVENT ---
Date of service: 08/16/25 Time of Service: 08:41 Cardiac Event Recorder Referring Provider:: Julianne Solis Indications:: Palpitations Cardiac Event Note: This is a cardiac event monitor. Patient was monitored for 12 days and 16 hours. Rhythm throughout was sinus with an average heart rate of 75. Minimum was 38, maximum 147 There were very rare isolated ventricular ectopic beats There were very rare isolated atrial premature beats There was no atrial fibrillation, no high-grade AV block, no pauses greater than 3 seconds No symptoms were reported
== END 2025-08-16 07:02 | disposition home or self-care (01) ==
LOC: CARDOPNVT 07:01
PROVIDERS: PCP Nurse Practitioner Family; Visit Provider Internal Medicine Cardiovascular Disease
DX: R00.2 Palpitations (principal)
CPT/HCPCS: 93248